=== PATIENT | female | born 1935 | race Caucasian/White ===

== ENCOUNTER 2022-02-10 13:05 | Inpatient (IN) | payer MEDICARE, BC ==
[~2022-02-10] VITALS: Ht 12.7 cm; Wt 71.2 kg
[2022-02-10 13:54] LABS: HEMATOCRIT 39.1 % (37.0-47.0); HEMOGLOBIN 13.2 g/dl (12.5-16.0); MEAN CELL VOLUME 93 fl (80.0-100.0); MEAN CORPUSCULAR HEMOGLOBIN 32 pg (27-31); MEAN CORPUSCULAR HGB CONC 34 g/dl (33.0-37.0); MEAN PLATELET VOLUME 9.8 fl (7.4-10.4); PLATELET COUNT 162 K/mm3 (130-400); RED BLOOD COUNT 4.19 M/mm3 (4.10-5.30); REDCELL DISTRIBUTION WIDTH-CV 13.1 % (11.5-14.5)
[2022-02-10 14:09] LABS: CALCIUM 8.9 mg/dL (8.4-10.2); CREATININE, serum 0.84 mg/dL (0.57-1.11); POTASSIUM 4.1 mmol/L (3.5-4.5)
[2022-02-10 14:33] LABS: BAND 10 % (0-10); BASOPHIL 3 % (0-2); EOSINOPHIL 1 % (0-4); LYMPHOCYTE 12 % (20.0-51.0); NEUTROPHILS 66 % (42.0-75.2)
[2022-02-10 14:34] LABS: PLATELET ESTIMATE NORMAL (NORMAL)
[2022-02-10] MEDS ORDERED: ZOCOR 40MG40 MG PO (15:23)
[2022-02-10] MEDS ORDERED: PLAVIX 75MG TAB75 MG PO (15:23)
[2022-02-10 16:00] VITALS: BP 157/86; PULSE 72; TEMP 98.8
[2022-02-10 16:33] LABS: INR 1.1 (0.8-3.0); PROTHROMBIN TIME 11.8 SECONDS (9.7-12.8)
[2022-02-10 18:16] LABS: PH 9 (5-8); SQUAMOUS EPITHELIAL 0-2 /hpf (0-10); URINE APPEARANCE Hazy (CLEAR/HAZY); URINE BACTERIA None Seen /hpf (NONE SEEN); URINE BILIRUBIN Negative (NEGATIVE); URINE BLOOD Negative (NEGATIVE); URINE COLOR Yellow (YELLOW); URINE GLUCOSE Negative (NEGATIVE); URINE KETONE Trace (NEGATIVE); URINE LEUKOCYTE ESTERASE Negative (NEGATIVE); URINE NITRATE Negative (NEGATIVE); URINE PROTEIN(semi-quant) Negative (NEGATIVE); URINE UROBILINOGEN Negative (NEGATIVE)
[2022-02-10 18:35] LABS: COLLECTION METHOD CLEAN CATCH
[2022-02-10 20:00] VITALS: BP 139/66; PULSE 59; TEMP 98.3
[2022-02-11] VITALS (14 sets, daily range): BP systolic 96–159; BP diastolic 48–89; PULSE 54–83; TEMP 97.6–98.5
[2022-02-11 06:31] LABS: BASO % 0.4 % (0.0-2.0); EOS # 0.1 K/mm3 (0.0-0.7); EOS % 0.9 % (0.0-4.0); GRAN # 5.6 K/mm3 (1.4-6.5); GRAN % 72.5 % (42.2-75.2); HEMATOCRIT 39.2 % (37.0-47.0); LYMPH # 1.4 K/mm3 (1.2-3.4); LYMPH % 17.4 % (20.0-51.0); MEAN CELL VOLUME 96 fl (80.0-100.0); MEAN CORPUSCULAR HEMOGLOBIN 32 pg (27-31); MEAN CORPUSCULAR HGB CONC 33 g/dl (33.0-37.0); MEAN PLATELET VOLUME 10.2 fl (7.4-10.4); MONO # 0.7 K/mm3 (0.1-0.6); MONO % 8.5 % (1.7-9.3); PLATELET COUNT 145 K/mm3 (130-400); RED BLOOD COUNT 4.09 M/mm3 (4.10-5.30); REDCELL DISTRIBUTION WIDTH-CV 13.2 % (11.5-14.5)
[2022-02-11 06:48] LABS: CALCIUM 8.4 mg/dL (8.4-10.2); CREATININE, serum 0.81 mg/dL (0.57-1.11); POTASSIUM 4.2 mmol/L (3.5-4.5)
--- NOTE | 2022-02-11 07:42 | NUR ---
ASSESSMENT COMPLETE. PT. IS LAYING IN BED AWAKE AND A&O X4. PT. COMPLAINING OF PAIN. MORHOPINE IV GIVEN (SEE EMAR). QUESTIONS ABOUT SPINAL VS. GENERAL ANESTHETIC ANSWERED. NO FURHTER NEEDS AT THIS TIME. CALL LIGHT IN REACH.
--- NOTE | 2022-02-11 09:23 | NUR ---
PATIENT GOING DOWN TO OR VIA BED. CONSENT ON CHART. PRE-OP IV FLUIDS INFUSING INTO RIGHT AC IV. AT BEDSIDE. PATIENT NOW OFF FLOOR.
--- NOTE | 2022-02-11 13:30 | NUR ---
PT. TO ROOM 324 POST OP LEFT FEMUR FRACTURE REPAIR. ALERT BUT VERY DROWSY. LR FLOWING IN RIGHT AC. DRESSING IS CD&I. ICE IS ON HIP. DENIES PAIN AND NAUSEA. CALL LIGHT WITHIN REACH. NO FURTHER NEEDS AT THIS TIME.
--- NOTE | 2022-02-11 14:00 | NUR ---
The patient returned from surgery. DORI met with the patient to discuss discharge plan. The patient lives alone in [place]. Her son, Fady (ph#[phone]), lives a mile away from her. The patient reports independence with ADLs before hospitalization and has a cane. The patient's primary care provider is Oxana Ospina PA-C and she receives her medications from [facility]. The patient does not have a DPOA-HC in EMR, but she states that she does have one completed and that she designated her two children: Fady and Kennedy (ph#[phone]). The patient states that she is and has her two children. The patient has a left hip fracture and had surgery today. DORI discussed post-acute rehab. The patient is agreeable to rehab and would prefer [facility]. DORI then contacted the patient's daughter, Kennedy, and reviewed the above. Kennedy is also in agreement to rehab. She states that their second preference would probably be [facility]. DORI contacted and faxed a referral to both facilities. Awaiting screens. *Discharge plan: SNF or SB*
--- NOTE | 2022-02-11 15:42 | NUR ---
Ariela, at [facility], states that they are able to accept the patient; but would not be able to take her until Tuesday. Jonelle, at [facility], states that they are interested in the patient. She states that they are able to take on the weekends, depending on their situation.
--- NOTE | 2022-02-11 20:20 | NUR ---
IV SITE TO RAC LEAKING, DC'D WITH ANGIOCATH INTACT. NEW IV STARTED TO RT WRIST, IVF INFUSING WITHOUT PROBLEM.
--- NOTE | 2022-02-11 21:45 | NUR ---
HS MEDS GIVEN INCLUDING TRAMADOL 100MG PO AT THIS TIME. HAS BEEN ON BEDPAN, PASSED GAS. MERCADO TO BSD WITH YELLOW URINE. DRSG TO LEFT HIP D/I, BULKY SURGICAL DRSG. USES IS WITH INSTRUCTION. DENIES NAUSEA.
--- NOTE | 2022-02-12 00:02 | NUR ---
PT REPORTS CONTINUED LEFT HIP PAIN, 03/26, NORCO GIVEN.
--- NOTE | 2022-02-12 02:00 | NUR ---
RESTING WITH EYES CLOSED.
[2022-02-12 04:20] VITALS: BP 95/59; PULSE 60; TEMP 97.9
[2022-02-12 06:42] LABS: CALCIUM 7.8 mg/dL (8.4-10.2); CREATININE, serum 0.81 mg/dL (0.57-1.11); POTASSIUM 4.3 mmol/L (3.5-4.5)
[2022-02-12 07:00] LABS: BASO % 0.2 % (0.0-2.0); EOS % 0.1 % (0.0-4.0); GRAN # 7.9 K/mm3 (1.4-6.5); GRAN % 77.5 % (42.2-75.2); LYMPH # 1.3 K/mm3 (1.2-3.4); LYMPH % 12.7 % (20.0-51.0); MEAN CELL VOLUME 93 fl (80.0-100.0); MEAN CORPUSCULAR HGB CONC 34 g/dl (33.0-37.0); MEAN PLATELET VOLUME 10.4 fl (7.4-10.4); MONO # 0.9 K/mm3 (0.1-0.6); MONO % 8.9 % (1.7-9.3); PLATELET COUNT 123 K/mm3 (130-400); RED BLOOD COUNT 3.05 M/mm3 (4.10-5.30); REDCELL DISTRIBUTION WIDTH-CV 13.2 % (11.5-14.5)
[2022-02-12 07:01] LABS: HEMATOCRIT 28.3 % (37.0-47.0); HEMOGLOBIN 9.5 g/dl (12.5-16.0); MEAN CORPUSCULAR HEMOGLOBIN 31 pg (27-31)
[2022-02-12 07:24] VITALS: BP 106/48; PULSE 61; TEMP 98.1
--- NOTE | 2022-02-12 08:00 | NUR ---
PATIENT IS A&O. VSS. DENIES PAIN AT REST HOWEVER, IS REQUESTING SOMETHING FOR PAIN BEFORE AM THERAPY. GAVE PRN NORCO, ONE TAB WITH AM MEDS. LEFT HIP DRESSING IS CD&I WITH OCCLUSIVE DRESSING & ICE PACK INPLACE. TEDS TO RLE. SCD'S TO BLE. POSITIVE PEDAL PULSES TO BLE. MERCADO TO DD WITH MOD AMOUNTS OF CLEAR YELLOW URINE NOTED. TOLERATING GENERAL DIET WELL. RIGHT WRIST IV TO INT. PATIENT SITTING UP IN BED WITH BREAKFAST TRAY. HEAD TO TOE ASSESSMENT COMPLETE. DNR STATUS. ORTHO ROUNDED EARLY THIS AM, SEE ORDERS. NO OTHER NEEDS AT THIS TIME. CALL LIGHT IN REACH.
[2022-02-12 12:01] VITALS: BP 108/57; PULSE 102; TEMP 97.9
--- NOTE | 2022-02-12 13:40 | NUR ---
DORI met with the patient and her [id number] to update on referrals. The patient states that she wants to pursue with [facility]. She is aware they cannot take until Tuesday. Her [id number] states that they have already been in contact with [facility] and they have her room already picked out. DORI emailed updates to My and faxed updates to Edda at [facility]. *Discharge plan: [facility] on Tuesday*
[2022-02-12 16:24] VITALS: BP 107/60; PULSE 60; TEMP 97.8
[2022-02-12 20:00] VITALS: BP 108/64; PULSE 66; TEMP 98.9
--- NOTE | 2022-02-12 20:30 | NUR ---
Pt. sitting up in bed. Pt. is A&OX3, assessment complete. INT to rt. wrist patent. Dressing to lt. hip CDI. Pt. reports pain at a 4 on pain scale. Pt. does not want to take the norco at this time. Pt. would like to have 1 tramadol instead of 2. Informed the pt. that that would be ok. Pt. denies further needs, call light within reach.
[2022-02-13] VITALS: BP 107/65; PULSE 69; TEMP 98.3
[2022-02-13 04:00] VITALS: BP 137/56; PULSE 75; TEMP 98
[2022-02-13 04:57] LABS: BASO # 0.1 K/mm3 (0.0-0.2); BASO % 0.7 % (0.0-2.0); EOS # 0.2 K/mm3 (0.0-0.7); GRAN # 5.4 K/mm3 (1.4-6.5); GRAN % 64.6 % (42.2-75.2); LYMPH # 2.1 K/mm3 (1.2-3.4); LYMPH % 24.7 % (20.0-51.0); MEAN CELL VOLUME 94 fl (80.0-100.0); MEAN CORPUSCULAR HGB CONC 34 g/dl (33.0-37.0); MONO # 0.6 K/mm3 (0.1-0.6); MONO % 7.6 % (1.7-9.3); PLATELET COUNT 113 K/mm3 (130-400); RED BLOOD COUNT 2.82 M/mm3 (4.10-5.30); REDCELL DISTRIBUTION WIDTH-CV 13.3 % (11.5-14.5)
[2022-02-13 05:05] LABS: CALCIUM 7.9 mg/dL (8.4-10.2); CREATININE, serum 0.74 mg/dL (0.57-1.11)
[2022-02-13 05:08] LABS: HEMATOCRIT 26.5 % (37.0-47.0); MEAN CORPUSCULAR HEMOGLOBIN 32 pg (27-31)
[2022-02-13 08:00] VITALS: BP 104/63; PULSE 60; TEMP 98.7
--- NOTE | 2022-02-13 08:00 | NUR ---
PATIENT IS A&O. VSS. DENIES PAIN AT REST HOWEVER, IS REQUESTING SOMETHING FOR PAIN BEFORE AM THERAPY. GAVE PRN NORCO, ONE TAB WITH AM MEDS. LEFT HIP DRESSING IS CD&I WITH AQUACEL & ICE PACK INPLACE. TEDS TO RLE. SCD'S TO BLE. POSITIVE PEDAL PULSES TO BLE. TOLERATING GENERAL DIET WELL. RIGHT WRIST IV TO INT. PATIENT SITTING UP IN BED WITH BREAKFAST TRAY. HEAD TO TOE ASSESSMENT COMPLETE. DNR STATUS. ORTHO ROUNDED EARLY THIS AM, SEE ORDERS. NO OTHER NEEDS AT THIS TIME. CALL LIGHT IN REACH.
--- NOTE | 2022-02-13 11:10 | NUR ---
Initial visit; Patient using telephone, Special Projects Coordinator left a card with Chelly informing her of the availability of spiritual care at our hospital.
[2022-02-13 12:00] VITALS: BP 108/53; PULSE 58; TEMP 98.4
[2022-02-13 15:58] VITALS: BP 108/60; PULSE 67; TEMP 98.3
[2022-02-13 19:25] VITALS: BP 121/61; PULSE 63; TEMP 99
--- NOTE | 2022-02-13 21:10 | NUR ---
Pt. sitting up in bed. Pt. is A&OX3, assessment complete. INT to rt. wrist patent. Pt. reports pain to lt. hip at a 4 on pain scale. Giving pain meds per orders. Dressing to lt. hip CDI. Pt. repositioned for comfort. Pt. denies further needs, call light within reach.
[2022-02-14 00:13] VITALS: BP 120/62; PULSE 63; TEMP 98.1
[2022-02-14 04:06] VITALS: BP 103/55; PULSE 60; TEMP 97.4
[2022-02-14 07:39] VITALS: BP 113/46; PULSE 61; TEMP 98
--- NOTE | 2022-02-14 09:47 | NUR ---
PT UP TO RECLINER FOR BREAKFAST. UP TO BR WITH SBAX1. SLOW STEADY GAIT. PT IS A/O X4, DRESSING TO LEFT HIP CDI WITH AQUACEL OVER INCISION. PLAN ON DISCHARGE TO SKILLED FACILITY TOMMORROW.
[2022-02-14 12:00] VITALS: BP 119/54; PULSE 55; PULSE 63; TEMP 98.2
[2022-02-14 16:00] VITALS: BP 138/89; PULSE 70; TEMP 98
[2022-02-14 19:15] VITALS: BP 122/69; PULSE 75; TEMP 99.6
--- NOTE | 2022-02-14 19:50 | NUR ---
Pt. sitting up in chair at this time. Pt. is A&OX3, assessment complete. INT to rt. wrist patent. Pt. reports pain to lt. hip at a 5 on pain scale, giving pain meds per orders. Pt. denies further needs at this time. Call light within reach.
[2022-02-15 00:27] VITALS: BP 110/54; PULSE 60; TEMP 98.3
[2022-02-15 04:39] VITALS: BP 103/64; PULSE 66; TEMP 98.9
[2022-02-15 06:08] LABS: HEMOGLOBIN 10.3 g/dl (12.5-16.0)
[2022-02-15 06:10] LABS: HEMATOCRIT 30.9 % (37.0-47.0)
[2022-02-15 06:29] LABS: CALCIUM 8.4 mg/dL (8.4-10.2); CREATININE, serum 0.76 mg/dL (0.57-1.11); MAGNESIUM 2.1 mg/dL (1.6-2.6); POTASSIUM 3.9 mmol/L (3.5-4.5)
[2022-02-15] MEDS ORDERED: TYLENOL 500MG500 MG PO (07:15)
[2022-02-15] MEDS ORDERED: FERROUS SU325 MG/TAB PO (07:15)
[2022-02-15] MEDS ORDERED: OSCAL 500 TAB500 MG PO (07:16)
[2022-02-15] MEDS ORDERED: DUO-KAPS1 CAP PO (07:16)
[2022-02-15] MEDS ORDERED: VITAMIN C500 MG PO (07:16)
[2022-02-15] MEDS ORDERED: ASPI325T6 PO (07:17)
[2022-02-15 08:00] VITALS: BP 138/96; PULSE 74; TEMP 98.2
--- NOTE | 2022-02-15 08:50 | NUR ---
ASSESSMENT COMPLETE. PT. A&OX4. PT SITTING UP IN BED EATING TOAST.INT TO RIGHT WRIST INTACT. DRESSING TO LEFT HIP CD&I. PT. ASSISTED TO THE BATHROOM WHERE SHE HAD A BM. TRANSFERED TO CHAIR. CHAIR ALARM IN PLACE. QUESTIONS ABOUT DISCHARGE WERE ANSWERED. CALL LIGHT IN REACH. NO FURTHER NEEDS AT THIS TIME.
--- NOTE | 2022-02-15 10:03 | NUR ---
The patient is to discharge today, 02/15, to [facility] for a skilled stay. Transportation to be by private vehicle, via the patient's [id number]. SW presented and read the IM form outloud to the patient. The patient verbalized understanding and of discharge today. SW student provided her with a copy. No additional needs at this time.
--- NOTE | 2022-02-15 11:09 | NUR ---
PT. FAMILY MEMEBER HERE TO TRANSPORT PT TO [facility]. INT HAS BEEN PREVIOUSLY REMOVED AND PT. ASSISTED TO GET DRESS. BELONGINGS GATHERED AND TAKEN WITH PT. REPORT CALLED TO RECEIVING FACILITY. ALL QUESTIONS ANSWERED. PT. DISCHARGED.
== END 2022-02-15 11:12 | DRG 521 ==
LOC: COL.ER 13:05 → SURG 15:22
PROVIDERS: Emergency Medicine; Internal Medicine; Orthopaedic Surgery; Physician Assistant; ADMIT Student in an Organized Health Care Education/Training Program
PROC: 0SRS0J9 Replacement of Left Hip Joint, Femoral Surface with Synthetic Substitute, Cemented, Open Approach (ICD-10-PCS; principal; 2022-02-11 09:00)
DX: S72.002A Fracture of unspecified part of neck of left femur, initial encounter for closed fracture (principal); J96.01 Acute respiratory failure with hypoxia; E78.00 Pure hypercholesterolemia, unspecified; M19.90 Unspecified osteoarthritis, unspecified site; D64.9 Anemia, unspecified; W01.0XXA Fall on same level from slipping, tripping and stumbling without subsequent striking against object, initial encounter; Y93.89 Activity, other specified; Y92.008 Other place in unspecified non-institutional (private) residence as the place of occurrence of the external cause; Z86.73 Personal history of transient ischemic attack (TIA), and cerebral infarction without residual deficits; Z79.02 Long term (current) use of antithrombotics/antiplatelets; Z20.822 Contact with and (suspected) exposure to COVID-19
CPT/HCPCS: 99222-AI; 99232-AI; 99239; A4314; A9284; C1776; J0690; J1100; J2250; J2270; J2370; J2405; J2795; J3010; J7050; J7121